=== PATIENT | male | born 1970 | race Caucasian/White ===

== ENCOUNTER → 2023-12-20 12:54 | Outpatient (REF) | payer OTHER, BC, SELFPAY | LOC: PAVMRI 12:54 | PROVIDERS: ATTENDING PHYSICIAN Internal Medicine Gastroenterology; FAMILY PHYSICIAN Nurse Practitioner | DX: K86.2 Cyst of pancreas (principal) | CPT/HCPCS: 74183; A9575 ==

== ENCOUNTER → 2025-07-18 08:15 | Outpatient (REF) | payer OTHER, SELFPAY | LOC: PAVMRI 08:15 | PROVIDERS: ATTENDING PHYSICIAN Orthopaedic Surgery; FAMILY PHYSICIAN Nurse Practitioner | DX: S46.211D Strain of muscle, fascia and tendon of other parts of biceps, right arm, subsequent encounter (principal) | CPT/HCPCS: 73221 ==